=== PATIENT | male | born 1960 | race Caucasian/White ===

== ENCOUNTER 2017-05-24 18:50 | Emergency (ER) | payer OTHER ==
[2017-05-24] MEDS ORDERED: IOPAMIDOL (ISOVUE-300) 100 ML BTL ONE (19:28)
[2017-05-24] MEDS ORDERED: NS 1,000 ML IV ONE (20:07)
[2017-05-24] MEDS ORDERED: LIDOCAINE 5% 1 EA PATCH TD ONE (20:09)
[2017-05-24] MEDS ORDERED: ACETAMINOPHEN 500 MG TAB PO ONE (20:09)
[2017-05-24] MEDS ORDERED: PATCH REMOVAL 1 EA PATCH TD SCH (21:00)
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
[2017-05-24] MEDS ORDERED: CYCLOBENZAPRINE 10 MG TAB PO ONE (21:46)
[2017-05-24 21:54] VITALS: BP 115/74; PULSE 61; RESP 18; TEMP 98.6; O2SAT 95
== END 2017-05-24 21:56 | disposition home or self-care (01) ==
DX: S30.0XXA Contusion of lower back and pelvis, initial encounter (principal); M62.830 Muscle spasm of back; J45.909 Unspecified asthma, uncomplicated; E86.9 Volume depletion, unspecified; V86.59XA Driver of other special all-terrain or other off-road motor vehicle injured in nontraffic accident, initial encounter; Y99.8 Other external cause status; Y93.89 Activity, other specified
CPT/HCPCS: 82947-QW; Q9967

== ENCOUNTER 2017-11-14 15:15 | Emergency (ER) | payer OTHER ==
[2017-11-14 15:22] VITALS: BP 116/76; PULSE 66; RESP 18; TEMP 97.9; O2SAT 94
--- NOTE | 2017-11-14 15:47 | EDPHY ---
H & P Stated Complaint: Left UE and LE Numbness, Began 11/13/17 at 1900 Time Seen by Provider: 11/14/17 15:25 HPI/ROS: CHIEF COMPLAINT: Left leg numbness HISTORY OF PRESENT ILLNESS: The patient is a 57 y/o male with a history of anxiety complaining of left lower leg numbness onset last night around 19:00, about 20 hours ago. Last night after walking back from dinner he noticed the lateral side of his left foot was numb in a small area. Upon waking this morning this area still felt numb and semsed to spread up to the lateral side of his ankle. This sensation has continued to slowly spread up the lateral side of his lower leg throughout the day to the distal calf and is not associated with weakness. He then noticed stiffness and soreness on the left side of his neck and in his upper left arm without weakness or numbness. He denies headache , recent trauma, head injury, fever, vision changes, confusion, speech difficulty. He has had prior evaluations for chest pain including a stress test and echocardiogram 4 years ago. They attributed his symptoms to stress, anxiety, and low potassium after that work up. He has also felt intermittent, mild lightheadedness for the last few weeks without obvious precipitating factors. REVIEW OF SYSTEMS: Constitutional: No fever, no chills Eyes: No visual changes ENT: No sore throat Respiratory: No cough, no shortness of breath Cardiac: See HPI Gastrointestinal: no vomiting, no abdominal pain Genitourinary: No hematuria, no dysuria Musculoskeletal: See HPI Skin: No rash Neurological: No headache Psychiatric: anxious - Personal History Current Tetanus Diphtheria and Acellular Pertussis (TDAP): Yes Tetanus Vaccine Date: 2013 - Medical/Surgical History PMH: PMH includes: 1. Anxiety/panic attacks 2. Hyperlipidemia 3. Low potassium 4. Asthma - allergy-related Prior medical records reviewed including ED visit 01/29/16 for chest pain. Hx Asthma: Yes Hx Chronic Respiratory Disease: No Hx Diabetes: No Hx Cardiac Disease: No Hx Renal Disease: No Hx Cirrhosis: No Hx Alcoholism: No Hx HIV/AIDS: No Hx Splenectomy or Spleen Trauma: No Other PMH: PMHx: Anxiety, panic attacks, hypothyroid, high cholesterol, asthma 2nd to allergy. PSHx: L hand tendon surgery, tonsillectomy, 2 hernia surgeries - Social History Smoking Status: Never smoked Additional Social History: Employed. Lives in [place]. Nonsmoker. PCP: Dr. Yadira Levine - Physical Exam Exam: General Appearance: Alert, no distress Eyes: Pupils equal and round, no conjunctival pallor or injection ENT, Mouth: Mucous membranes moist Neck: Tenderness at origin of sternocleidomastoid on left side, no pain with ROM , otherwise normal inspection Respiratory: Lungs are clear to auscultation Cardiovascular: Occasional irregular beat, otherwise normal rate and rhythm Gastrointestinal: Abdomen is soft and non-tender Neurological: A&O, nonfocal, normal gait Alert, oriented x3, cranial nerves II through XII intact, motor 5/5, diminished sensation to light touch over lateral of left foot that extends to just above the lateral malleolus, area involved is linear and approx 1cm in width, otherwise intact sensation to light touch, 2+ patellar reflexes bilaterally. Skin: Warm and dry, no rash Vascular: 2+ pedal pulses Extremities: Nontender, no pedal edema Psychiatric: anxious Constitutional: Initial Vital Signs Temperature (C) 36.6 C 11/14/17 15:20 Heart Rate 66 11/14/17 15:20 Respiratory Rate 18 11/14/17 15:20 Blood Pressure 116/76 11/14/17 15:20 O2 Sat (%) 94 11/14/17 15:20 O2 Delivery Mode Room Air Allergies/Adverse Reactions: cat dander Allergy (Intermediate, Verified 01/29/16 21:46) Dyspnea Home Medications: Medication Instructions Recorded Levothyroxine [Synthroid 125 mcg 125 mcg PO DAILY06 09/21/12 (RX)] Crestor 01/29/16 Cyclobenzaprine [Flexeril 10 MG 10 mg PO TID PRN #15 tab 05/24/17 (*)] Medical Decision Making ED Course/Re-evaluation: this pt presents with a very small area of LLE numbness. Presentation is most consistent with a peripheral neuropathy. No evidence of CVA. Will obtain labs b /c of prior hypokalemia. EKG ordered. The 12 lead EKG was interpreted by myself. NSR, rate 66, PVC, no ST/T changes. See hard copy and/or "tracemaster" electronic copy for interpretation. Labs are unremarkable. Reassessed patient and discussed work up. Exam remains unchanged. He is feeling well and is comfortable following up with his PCP as an outpatient for reevaluation. Return precautions discussed. Differential Diagnosis: includes though not limited to CVA, TIA, electrolyte abn, neurovasc compromise - Data Points Laboratory Results: Laboratory Results 11/14/17 15:55 11/14/17 15:55 Departure - Departure Disposition: Home, Routine, Self-Care Clinical Impression: Peripheral neuropathy Qualifiers: Peripheral neuropathy type: mononeuropathy, unspecified Qualified Code(s): G58.9 - Mononeuropathy, unspecified Condition: Good Instructions: Peripheral Neuropathy (ED) Additional Instructions: Your potassium was normal today. Please follow up with Dr. Levine on Friday. I recommend calling today to schedule this appointment. Return to the ED for any worsening of condition. Referrals: Yadira Levine MD [Primary Care Provider] - As per Instructions Report Scribed for: Delma Bunn Report Scribed by: Yolie Ram Date of Report: 11/14/17 Time of Report: 16:23 Physician Review and Approval Statement: 11/14/17 16:23 Portions of this note were transcribed by a medical records library professor. I personally performed a history, physical exam, medical decision making, and confirmed accuracy of information the transcribed note.
[2017-11-14 16:01] LABS: PLATELET COUNT 233 10^3/uL (150-400)
--- NOTE | 2017-11-14 16:05 | CPEKG ---
Heart Rate: 66 RR Interval: 909 P-R Interval: 172 QRSD Interval: 96 QT Interval: 428 QTC Interval: 449 P Kopperl: 13 QRS Kopperl: -20 T Wave Kopperl: 52 EKG Severity - BORDERLINE ECG - EKG Impression: SINUS RHYTHM EKG Impression: VENTRICULAR PREMATURE COMPLEX EKG Impression: BORDERLINE LEFT AXIS DEVIATION EKG Impression: BORDERLINE T WAVE ABNORMALITIES Electronically Signed By: Delma Bunn 14-Nov-2017 21:45:53
== END 2017-11-14 16:31 | disposition home or self-care (01) ==
DX: G58.9 Mononeuropathy, unspecified (principal); J45.909 Unspecified asthma, uncomplicated

== ENCOUNTER 2018-11-25 17:03 | Emergency (ER) | payer OTHER ==
[2018-11-25] MEDS ORDERED: NS 500 ML IV ONE (17:41)
[2018-11-25] MEDS ORDERED: ASPIRIN 81 MG CHEWABLE TAB PO ONE (17:41)
[2018-11-25 18:05] LABS: PLATELET COUNT 265 10^3/uL (150-400)
[2018-11-25 18:12] LABS: INR 0.91 (0.83-1.16); PROTIME(PATIENT) 12.5 SEC (12.0-15.0)
[2018-11-25] MEDS ORDERED: FAMOTIDINE 20 MG/2 ML SDV IVP ONE (18:17)
[2018-11-25] MEDS ORDERED: HYOSCYAMINE SULFATE 0.125 MG TAB PO ONE (18:17)
[2018-11-25] MEDS ORDERED: LIDOCAINE 2% VISCOUS 15 ML UDCUP PO ONE (18:17)
[2018-11-25] MEDS ORDERED: MAG HYDROX/AL HYDROX/SIMETH 30 ML UDCUP PO ONE (18:17)
--- NOTE | 2018-11-25 18:20 | EDPHY ---
H & P Time Seen by Provider: 11/25/18 17:38 HPI/ROS: CHIEF COMPLAINT: Chest pain, belching HISTORY OF PRESENT ILLNESS: The patient is a 58-year-old male with a history high cholesterol presents emergency department with belching leg chest pain. The patient states that he has had 2 days of increased belching episodes. He feels as though air is caught in his sub sternum. He needs to sit up straight and felt she had to alleviate symptoms. He states it is worse when he lays down at night. He does not note any significant reflux. He does not describe this as "chest pain." He has had no shortness of breath (although triage state does state shortness of breath). No recent cough or fever. No leg pain or swelling. The patient has had previous episodes like this in the past. Patient also reports that a few years ago he had fainting episode and was worked up for heart issues. Workup was unremarkable. REVIEW OF SYSTEMS: 10 systems were reveiwed and are negative with the exception of the elements mentioned in the history of present illness. Past Medical/Surgical History: Includes high cholesterol, anxiety, panic attacks, hypothyroidism, asthma Past surgical history: Includes orthopedic surgery, tonsillectomy, hernia surgery Social history: Patient does not smoke Smoking Status: Never smoked Physical Exam: Vitals noted GENERAL: Well-appearing, in no acute distress, alert. HEENT: Eyes normal to inspection, normal pharynx, no signs of dehydration. NECK: Normal, supple. RESPIRATORY: Clear to auscultation bilaterally, no rales, rhonchi or wheezing. CVS: Regular rate and rhythm, no rubs, murmurs, or gallops. ABDOMEN: Soft, nontender, nondistended, no organomegaly. Benign BACK: Normal to inspection, no CVA tenderness. SKIN: Normal color, no rash, warm, dry. No pallor. EXTREMITIES: No pedal edema, no calf tenderness, no Homans sign or cords, no joint swelling. NEURO/PSYCH: Alert and oriented, normal mood and affect. Constitutional: Initial Vital Signs Temperature (C) 36.5 C 11/25/18 17:07 Heart Rate 82 11/25/18 17:07 Respiratory Rate 16 11/25/18 17:07 Blood Pressure 157/81 H 11/25/18 17:07 O2 Sat (%) 94 11/25/18 17:07 O2 Delivery Mode Room Air O2 (L/minute) 2 Allergies/Adverse Reactions: cat dander Allergy (Intermediate, Verified 11/25/18 17:06) Dyspnea Home Medications: Medication Instructions Recorded Levothyroxine [Synthroid 125 mcg 125 mcg PO DAILY06 09/21/12 (RX)] Crestor 01/29/16 Cyclobenzaprine [Flexeril 10 MG 10 mg PO TID PRN #15 tab 05/24/17 (*)] Famotidine [Pepcid 20 MG (*)] 20 mg PO BID #10 tab 11/25/18 Medical Decision Making - Diagnostics Imaging Results: Imaging Impressions Chest X-Ray 11/25/18 17:41 Impression: No acute findings in the chest. ED Course/Re-evaluation: In the emergency department discussed possible etiologies with the patient. I answered all his questions. IV was placed. Laboratory studies, EKG and chest x -ray were ordered. The patient was given aspirin 324 mg orally. Patient was also given a GI cocktail and Pepcid. EKG shows normal sinus rhythm, normal rate, normal axis, normal intervals. There are no ST or T-wave abnormalities. EKG is normal as interpreted by me. Patient's CBC chemistry unremarkable. Troponin is negative. D-dimer is negative. Chest x-ray is negative. 1720: I rechecked the patient. He had no chest pain or other complaints. The lungs question with the patient regarding his symptoms. He feels comfortable with discharge. He will follow up with [facility]. He is given a prescription of Pepcid. He understands that he needs further evaluation for possible cardiac disease. He was given warnings prior to leaving. He will return worsening symptoms. Differential Diagnosis: My differential includes but is not limited to ACS, acute NC, peptic ulcer disease, reflux, pericarditis, myocarditis, pulmonary embolus, dissection, aneurysm - Data Points Laboratory Results: Laboratory Results 11/25/18 17:45 11/25/18 17:45 11/25/18 11/25/18 11/25/18 17:46 17:45 17:45 WBC RBC Hgb Hct MCV MCH MCHC RDW Plt Count MPV Neut % (Auto) Lymph % (Auto) Mcculloch % (Auto) Eos % (Auto) Baso % (Auto) Nucleat RBC Rel Count Absolute Neuts (auto) Absolute Lymphs (auto) Absolute Monos (auto) Absolute Eos (auto) Absolute Basos (auto) Absolute Nucleated RBC Immature Gran % Immature Gran # PT 12.5 SEC SEC (12.0-15.0) INR 0.91 (0.83-1.16) APTT 28.0 SEC SEC (23.0-38.0) D-Dimer < 0.27 ug/mLFEU ug/mLFEU (0.00-0.50) Sodium 137 mEq/L mEq/L (135-145) Potassium 4.2 mEq/L mEq/L (3.5-5.2) Chloride 107 mEq/L mEq/L (97-110) Carbon Dioxide 20 mEq/l L mEq/l (22-31) Anion Gap 10 mEq/L mEq/L (6-14) BUN 25 mg/dL H mg/dL (7-23) Creatinine 1.1 mg/dL mg/dL (0.7-1.3) Estimated GFR > 60 Glucose 92 mg/dL mg/dL (70-100) Calcium 9.1 mg/dL mg/dL (8.5-10.4) POC Troponin I 0.00 ng/mL ng/mL (0.00-0.08) NT-Pro-B Natriuret Pep 109 pg/mL pg/mL (0-125) 11/25/18 17:45 WBC 6.19 10^3/uL 10^3/uL (3.80-9.50) RBC 4.80 10^6/uL 10^6/uL (4.40-6.38) Hgb 15.2 g/dL g/dL (13.7-17.5) Hct 45.1 % % (40.0-51.0) MCV 94.0 fL fL (81.5-99.8) MCH 31.7 pg pg (27.9-34.1) MCHC 33.7 g/dL g/dL (32.4-36.7) RDW 12.3 % % (11.5-15.2) Plt Count 265 10^3/uL 10^3/uL (150-400) MPV 8.9 fL fL (8.7-11.7) Neut % (Auto) 53.1 % % (39.3-74.2) Lymph % (Auto) 32.5 % % (15.0-45.0) Mcculloch % (Auto) 9.4 % % (4.5-13.0) Eos % (Auto) 3.9 % % (0.6-7.6) Baso % (Auto) 0.8 % % (0.3-1.7) Nucleat RBC Rel Count 0.0 % % (0.0-0.2) Absolute Neuts (auto) 3.29 10^3/uL 10^3/uL (1.70-6.50) Absolute Lymphs (auto) 2.01 10^3/uL 10^3/uL (1.00-3.00) Absolute Monos (auto) 0.58 10^3/uL 10^3/uL (0.30-0.80) Absolute Eos (auto) 0.24 10^3/uL 10^3/uL (0.03-0.40) Absolute Basos (auto) 0.05 10^3/uL 10^3/uL (0.02-0.10) Absolute Nucleated RBC 0.00 10^3/uL 10^3/uL (0-0.01) Immature Gran % 0.3 % % (0.0-1.1) Immature Gran # 0.02 10^3/uL 10^3/uL (0.00-0.10) PT INR APTT D-Dimer Sodium Potassium Chloride Carbon Dioxide Anion Gap BUN Creatinine Estimated GFR Glucose Calcium POC Troponin I NT-Pro-B Natriuret Pep Medications Given: Discontinued Medications Al Hydroxide/Mg Hydroxide (Maalox Susp) 30 ml PO ONCE ONE Stop: 11/25/18 18:18 Last Admin: 11/25/18 18:28 Dose: 30 ml Aspirin (Aspirin) 324 mg PO EDNOW ONE Stop: 11/25/18 17:42 Last Admin: 11/25/18 17:52 Dose: 324 mg Famotidine (Pepcid) 20 mg IVP EDNOW ONE Stop: 11/25/18 18:18 Last Admin: 11/25/18 18:28 Dose: 20 mg Hyoscyamine Sulfate (Levsin, Hyomax-Sl) 0.25 mg PO ONCE ONE Stop: 11/25/18 18:18 Last Admin: 11/25/18 18:28 Dose: 0.25 mg Sodium Chloride (Ns) 500 mls @ 1,000 mls/hr IV EDNOW ONE PRN Reason: Protocol Stop: 11/25/18 18:10 Last Admin: 11/25/18 17:52 Dose: 500 mls Lidocaine (Lidocaine 2% Viscous) 15 ml PO ONCE ONE Stop: 11/25/18 18:18 Last Admin: 11/25/18 18:28 Dose: 15 ml Point of Care Test Results: Chemistry 11/25/18 17:46 POC Troponin I 0.00 ng/mL ng/mL (0.00-0.08) Departure - Departure Disposition: Home, Routine, Self-Care Clinical Impression: Chest pain Qualifiers: Chest pain type: unspecified Qualified Code(s): R07.9 - Chest pain, unspecified Condition: Fair Instructions: Chest Pain (ED) Additional Instructions: Return with increasing chest pain, shortness of breath, fever or any other concerns. Take Pepcid twice daily as directed by prescription. You to call [facility] tomorrow morning to make the next available appointment. Referrals: Yadira Levine MD [Primary Care Provider] - As per Instructions [facility] [Provider Group] - 2-3 days without fail Prescriptions: Famotidine [Pepcid 20 MG (*)] 20 mg PO BID #10 tab
[2018-11-25 19:09] VITALS: BP 118/76
--- NOTE | 2018-11-25 20:20 | CPEKG ---
Test Reason : OPEN Blood Pressure : / mmHG Vent. Rate : 062 BPM Atrial Rate : 065 BPM P-R Int : 162 ms QRS Dur : 103 ms QT Int : 421 ms P-R-T Axes : 049 -12 050 degrees QTc Int : 428 ms Sinus rhythm Multiple ventricular premature complexes Confirmed by Gisell Waller ([id number]) on 11/25/2018 8:19:59 PM Referred By: Gisell Waller Confirmed By:Gisell Waller
== END 2018-11-25 19:34 | disposition home or self-care (01) ==
DX: R07.9 Chest pain, unspecified (principal); E78.00 Pure hypercholesterolemia, unspecified; F41.9 Anxiety disorder, unspecified
CPT/HCPCS: 84484-ER; 96374